=== PATIENT | male | born 1955 | race Caucasian/White ===

== ENCOUNTER 2023-12-29 14:38 | Emergency (ER) | payer MEDICARE, OTHER ==
[2023-12-29 15:30] VITALS: TEMP 97.8
[2023-12-29] MEDS ORDERED: Sodium Chloride 0.9% 1000 ML 1,000 ML ONE (15:40)
[2023-12-29] MEDS: Sodium Chloride 0.9% 1000 ML 1,000 ML IV SCH (15:41)
[2023-12-29 16:03] LABS: Absolute Neutrophil Ct (ANC) 8.33 x10^3/uL (1.4-6.9); BASOPHIL % 0.4 % (0.0-0.4); Basophil (Absolute #) 0.05 x10^3/uL (0-0.4); Eosinophil % 1.4 % (0.00-5.0); Eosinophil (Absolute #) 0.16 x10^3/uL (0-0.5); Hemoglobin 13.2 g/dL (12.5-18.0); IMMATURE GRAN # 0.15 x10^3u/L (0.00-0.03); IMMATURE GRAN % 1.3 % (0.00-0.4); Lymphocyte (Absolute #) 1.77 x10^3/uL (1.0-4.6); Lymphocytes % 15.6 % (24.0-44.0); Mean Cell Volume 85.3 fL (78-100); Mean Corpuscular Hemoglobin 28.1 pg (26-32); Mean Platelet Volume 9.5 fL (7.5-11.0); Monocyte (Absolute #) 0.92 x10^3/uL (0.0-1.3); Monocytes % 8.1 % (0.0-12.0); Neutrophil % 73.2 % (36.0-66.0); Platelet Count 396 x10^3/uL (150-450); Red Blood Count 4.69 x10^6/uL (4.1-5.6); Red Cell Distribution Width 14.6 % (11.5-14.0); White Blood Count 11.4 x10^3/uL (4.0-10.5)
[2023-12-29 16:43] LABS: ANION GAP 14.3 MEQ/L (5-15); BILIRUBIN,TOTAL 0.7 mg/dL (0.2-1.3); Calcium 9.5 mg/dL (8.4-10.2); Creatinine 1 1.04 mg/dL (0.66-1.25); EST GLOMERULAR FILTRATION RATE 79.2 ML/MIN; Potassium 4.4 mmol/L (3.5-5.1); TSH, 3RD Generation 2.429 mIU/L (0.470-4.680); Total Protein 7.1 g/dL (6.3-8.2)
[2023-12-29 16:45] LABS: INR 0.99 (0.8-3.0); PROTIME 10.8 SECONDS (9.4-12.5)
--- NOTE | 2023-12-29 17:01 | XRAY ---
Indication: Weight loss. Comparison: None Portable chest hyperinflated and clear. Mild focal eventration right hemidiaphragm. Heart not enlarged. Bony thorax intact with osteopenia and mild degenerative changes. Impression: Nonacute hyperinflated chest with chronic features.
--- NOTE | 2023-12-29 17:07 | ERPHSYRPT ---
- History of Present Illness Time Seen by Provider: 12/29/23 15:25 Source: patient Exam Limitations: no limitations Patient Subjective Stated Complaint: C/O fatigue, yellow diarrhea, joint pain, weight loss Triage Nursing Assessment: Patient ambulated back to ER. He is alert and oriented. Labored breathing noted at this time. No cough. Edema to BLE. Patient is pale. Physician History: Patient is a 68-year-old male who presents with a complaint of not feeling well. He has been swelling he also has had yellow diarrhea he has been profoundly fatigued he has had a 70 pound weight loss over the last few weeks and his right leg is swollen.He says that his health deteriorated after his Ozempic was doubled from 2.5-5.He Timing/Duration: week(s) (8) Severity: moderate Modifying Factors: Improves With: eating Associated Symptoms: malaise, weakness Allergies/Adverse Reactions: No Known Drug Allergies Allergy (Verified 12/29/23 15:17) Home Medications: Metformin HCl 500 mg [Glucophage 500 MG] 1,000 mg PO BID 01/15/14 [History] Atorvastatin Calcium [Lipitor] 40 mg PO HS 12/29/23 [History] Empagliflozin [Jardiance] 10 mg PO DAILY 12/29/23 [History] Fluticasone/Umeclidin/Vilanter [Trelegy Ellipta 100-62.5-25] 1 puff PO DAILY 12/29/23 [History] Magnesium Oxide 400 mg [Mag-Ox 400] 400 mg PO TID 12/29/23 [History] Bovina-3 Fatty Acids/Fish Oil [Fish Oil 1,000 mg Capsule] 1,000 mg PO BID 12/29/23 [History] Potassium Chloride 10 meq PO BID 12/29/23 [History] Semaglutide [Ozempic] 2 mg SQ WEEKLY 12/29/23 [History] Tamsulosin HCl 0.4 mg [Flomax 0.4 MG] 0.4 mg PO DAILY 12/29/23 [History] Torsemide 20 mg [Demadex 20 mg] 40 mg PO DAILY 12/29/23 [History] Hx Tetanus, Diphtheria Vaccination/Date Given: Yes Hx Influenza Vaccination/Date Given: No Hx Pneumococcal Vaccination/Date Given: No Immunizations Up to Date: Yes Travel Risk - International Travel Have you traveled outside of the country in past 3 weeks: No - Emerging Infectious Disease Are you exhibiting symptoms associated with any current EIDs: Yes Symptoms: Diarrhea, Headaches/Body Aches/, Joint Pain - Review of Systems Constitutional: Weakness, Weight Loss, No Fever, No Chills Eyes: No Symptoms Ears, Nose, & Throat: No Symptoms Respiratory: No Cough, No Dyspnea Cardiac: No Chest Pain, No Edema, No Syncope Abdominal/Gastrointestinal: Diarrhea (Yellow diarrhea), Other, No Abdominal Pain, No Nausea, No Vomiting Genitourinary Symptoms: No Dysuria Musculoskeletal: Joint Pain, Other (Edema of lower extremities), No Back Pain, No Neck Pain Skin: No Rash Neurological: No Dizziness, No Focal Weakness, No Sensory Changes Psychological: No Symptoms Endocrine: No Symptoms All Other Systems: Reviewed and Negative - Past Medical History Pertinent Past Medical History: Yes Neurological History: No Pertinent History ENT History: No Pertinent History Cardiac History: High Cholesterol Respiratory History: COPD Endocrine Medical History: Diabetes Type II GI Medical History: Hernia Psycho-Social History: Depression Male Reproductive Disorders: Prostate Problems - Past Surgical History Past Surgical History: Yes Gastrointestinal: Cholecystectomy Other Surgical History: LEFT SHOULDER - Social History Smoking Status: Current every day smoker How long have you smoked: 50 years Exposure to second hand smoke: Yes Drug Use: none Patient Lives Alone: No - Nursing Vital Signs Nursing Vital Signs: Initial Vital Signs Pulse Rate 94 H 12/29/23 15:13 Respiratory Rate 12/29/23 15:13 Blood Pressure 101/69 12/29/23 15:13 O2 Sat by Pulse Oximetry 93 L 12/29/23 15:13 Pain Scale Pain Intensity 10 - Physical Exam General Appearance: mild distress, alert Eye Exam: PERRL/EOMI, eyes nml inspection Ears, Nose, Throat Exam: normal ENT inspection, TMs normal, pharynx normal, moist mucous membranes Neck Exam: normal inspection, non-tender, supple, full range of motion Respiratory Exam: normal breath sounds, lungs clear, No respiratory distress Cardiovascular Exam: regular rate/rhythm, normal heart sounds, normal peripheral pulses Gastrointestinal/Abdomen Exam: soft, normal bowel sounds, No tenderness, No mass Back Exam: normal inspection, normal range of motion, No CVA tenderness, No v ertebral tenderness Extremity Exam: normal inspection, normal range of motion, pelvis stable Neurologic Exam: alert, oriented x 3, cooperative, normal mood/affect, nml cerebellar function, nml station & gait, sensation nml, No motor deficits Skin Exam: normal color, warm, dry, No rash Lymphatic Exam: No adenopathy SpO2: 94 - Course Nursing assessment & vital signs reviewed: Yes EKG Interpreted by Me: RATE (93), Sinus Rhythm, NORMAL AXIS, NORMAL INTERVALS, Non-specific ST Changes - Radiology Exams Chest X-ray Interpretation: Reviewed by me - CT Exams Abdomen/Pelvis CT Interpretation: Other (Reviewed by ED physician) Ordered Tests: Active Orders 24 hr Category Date Time Status EKG-ER Only STAT Care 12/29/23 15:19 Active IV Insertion STAT Care 12/29/23 15:19 Active ABDOMEN AND PELVIS W CONTRAST [CT] Stat Exams 12/29/23 15:23 Taken CHEST 1 VIEW (PORTABLE) Stat Exams 12/29/23 15:23 Completed AMYLASE Stat Lab 12/29/23 15:30 Completed BLOOD CULTURE Stat Lab 12/29/23 16:12 Received CBC W DIFF Stat Lab 12/29/23 15:30 Completed CMP Stat Lab 12/29/23 15:30 Completed LIPASE Stat Lab 12/29/23 15:30 Completed Lactic Acid Stat Lab 12/29/23 15:19 Completed Lactic Acid Stat Lab 12/29/23 18:39 Completed OB-FECAL SCREEN Stat Lab 12/29/23 Ordered PROTIME WITH INR Stat Lab 12/29/23 15:30 Completed TROPONIN Q4H Lab 12/29/23 15:30 Completed TROPONIN Q4H Lab 12/29/23 18:40 Completed TROPONIN Q4H Lab 12/29/23 23:30 Ordered TSH, 3RD Generation Stat Lab 12/29/23 15:30 Completed UA W/RFX UR CULTURE Stat Lab 12/29/23 17:53 Completed Urine Triage Profile Stat Lab 12/29/23 17:53 Completed Medication Summary Generic Name Dose Route Start Last Admin Trade Name Freq PRN Reason Stop Dose Admin Sodium Chloride 1,000 mls @ 100 mls/hr 12/29/23 15:30 12/29/23 15:41 Sodium Chloride 0.9% 1000 Ml IV 01/28/24 15:29 100 mls/hr .Q10H JORGE LUIS Administration Lab/Rad Data: Laboratory Result Diagrams 12/29/23 15:30 12/29/23 15:30 Laboratory Results 12/29/23 12/29/23 12/29/23 Range/Units 18:40 18:39 17:53 WBC (4.0-10.5) x10^3/uL RBC (4.1-5.6) x10^6/uL Hgb (12.5-18.0) g/dL Hct (42-50) % MCV (78-100) fL MCH (26-32) pg MCHC (32-36) g/dL RDW (11.5-14.0) % Plt Count (150-450) x10^3/uL MPV (7.5-11.0) fL Gran % (36.0-66.0) % Immature Gran % (Auto) (0.00-0.4) % Nucleat RBC Rel Count (0.00-0.1) % Eos # (Auto) (0-0.5) x10^3/uL Immature Gran # (Auto) (0.00-0.03) x10^3u/L Absolute Lymphs (auto) (1.0-4.6) x10^3/uL Absolute Monos (auto) (0.0-1.3) x10^3/uL Absolute Nucleated RBC (0.00-0.01) x10^3u/L Lymphocytes % (24.0-44.0) % Monocytes % (0.0-12.0) % Eosinophils % (0.00-5.0) % Basophils % (0.0-0.4) % Absolute Granulocytes (1.4-6.9) x10^3/uL Basophils # (0-0.4) x10^3/uL PT (9.4-12.5) SECONDS INR (0.8-3.0) Sodium (135-145) mmol/L Potassium (3.5-5.1) mmol/L Chloride (98-107) mmol/L Carbon Dioxide (22-30) mmol/L Anion Gap (5-15) MEQ/L BUN (9-20) mg/dL Creatinine (0.66-1.25) mg/dL Estimated GFR ML/MIN Glucose (74-106) mg/dL Lactic Acid 2.0 (0.4-2.0) Calcium (8.4-10.2) mg/dL Total Bilirubin (0.2-1.3) mg/dL AST (17-59) U/L ALT (0-50) U/L Alkaline Phosphatase (38-126) U/L Troponin I 0.043 H* (0.000-0.033) ng/mL Serum Total Protein (6.3-8.2) g/dL Albumin (3.5-5.0) g/dL Amylase (30-110) U/L Lipase (23-300) U/L TSH 3rd Generation (0.470-4.680) mIU/L Urine Color (Yellow) Urine Appearance (Clear) Urine pH (4.6-8.0) Ur Specific Warren (1.005-1.030) Urine Protein (Negative) Urine Glucose (UA) (Negative) mg/dL Urine Ketones (Negative) Urine Blood (Negative) Urine Nitrite (Negative) Urine Bilirubin (Negative) Urine Urobilinogen (0.2) mg/dL Ur Leukocyte Esterase (Negative) U Hyaline Cast (Auto) (0-2) /LPF Urine Microscopic RBC (0-5) /HPF Urine Microscopic WBC (0-5) /HPF Ur Epithelial Cells (None Seen) /HPF Urine Bacteria (None Seen) /HPF Urine Culture Reflexed (NO) Urine Opiates Level NEGATIVE (NEGATIVE) Ur Methadone NEGATIVE (NEGATIVE) Urine Barbiturates NEGATIVE (NEGATIVE) Ur Phencyclidine (PCP) NEGATIVE (NEGATIVE) Urine Amphetamine NEGATIVE (NEGATIVE) U Benzodiazepine Level NEGATIVE (NEGATIVE) Urine Cocaine NEGATIVE (NEGATIVE) Urine Marijuana (THC) NEGATIVE (NEGATIVE) 12/29/23 12/29/23 12/29/23 Range/Units 17:53 15:30 15:30 WBC (4.0-10.5) x10^3/uL RBC (4.1-5.6) x10^6/uL Hgb (12.5-18.0) g/dL Hct (42-50) % MCV (78-100) fL MCH (26-32) pg MCHC (32-36) g/dL RDW (11.5-14.0) % Plt Count (150-450) x10^3/uL MPV (7.5-11.0) fL Gran % (36.0-66.0) % Immature Gran % (Auto) (0.00-0.4) % Nucleat RBC Rel Count (0.00-0.1) % Eos # (Auto) (0-0.5) x10^3/uL Immature Gran # (Auto) (0.00-0.03) x10^3u/L Absolute Lymphs (auto) (1.0-4.6) x10^3/uL Absolute Monos (auto) (0.0-1.3) x10^3/uL Absolute Nucleated RBC (0.00-0.01) x10^3u/L Lymphocytes % (24.0-44.0) % Monocytes % (0.0-12.0) % Eosinophils % (0.00-5.0) % Basophils % (0.0-0.4) % Absolute Granulocytes (1.4-6.9) x10^3/uL Basophils # (0-0.4) x10^3/uL PT 10.8 (9.4-12.5) SECONDS INR 0.99 (0.8-3.0) Sodium (135-145) mmol/L Potassium (3.5-5.1) mmol/L Chloride (98-107) mmol/L Carbon Dioxide (22-30) mmol/L Anion Gap (5-15) MEQ/L BUN (9-20) mg/dL Creatinine (0.66-1.25) mg/dL Estimated GFR ML/MIN Glucose (74-106) mg/dL Lactic Acid (0.4-2.0) Calcium (8.4-10.2) mg/dL Total Bilirubin (0.2-1.3) mg/dL AST (17-59) U/L ALT (0-50) U/L Alkaline Phosphatase (38-126) U/L Troponin I 0.051 H* (0.000-0.033) ng/mL Serum Total Protein (6.3-8.2) g/dL Albumin (3.5-5.0) g/dL Amylase (30-110) U/L Lipase (23-300) U/L TSH 3rd Generation (0.470-4.680) mIU/L Urine Color Yellow (Yellow) Urine Appearance Clear (Clear) Urine pH 6.0 (4.6-8.0) Ur Specific Warren >=1.030 A (1.005-1.030) Urine Protein Negative (Negative) Urine Glucose (UA) >=1000 A (Negative) mg/dL Urine Ketones Negative (Negative) Urine Blood Negative (Negative) Urine Nitrite Negative (Negative) Urine Bilirubin Negative (Negative) Urine Urobilinogen 0.2 (0.2) mg/dL Ur Leukocyte Esterase Negative (Negative) U Hyaline Cast (Auto) NONE SEEN (0-2) /LPF Urine Microscopic RBC 0-2 (0-5) /HPF Urine Microscopic WBC 0-2 (0-5) /HPF Ur Epithelial Cells None Seen (None Seen) /HPF Urine Bacteria None Seen (None Seen) /HPF Urine Culture Reflexed NO (NO) Urine Opiates Level (NEGATIVE) Ur Methadone (NEGATIVE) Urine Barbiturates (NEGATIVE) Ur Phencyclidine (PCP) (NEGATIVE) Urine Amphetamine (NEGATIVE) U Benzodiazepine Level (NEGATIVE) Urine Cocaine (NEGATIVE) Urine Marijuana (THC) (NEGATIVE) 12/29/23 12/29/23 12/29/23 Range/Units 15:30 15:30 15:19 WBC 11.4 H (4.0-10.5) x10^3/uL RBC 4.69 (4.1-5.6) x10^6/uL Hgb 13.2 (12.5-18.0) g/dL Hct 40.0 L (42-50) % MCV 85.3 (78-100) fL MCH 28.1 (26-32) pg MCHC 33.0 (32-36) g/dL RDW 14.6 H (11.5-14.0) % Plt Count 396 (150-450) x10^3/uL MPV 9.5 (7.5-11.0) fL Gran % 73.2 H (36.0-66.0) % Immature Gran % (Auto) 1.3 H (0.00-0.4) % Nucleat RBC Rel Count 0.0 (0.00-0.1) % Eos # (Auto) 0.16 (0-0.5) x10^3/uL Immature Gran # (Auto) 0.15 H (0.00-0.03) x10^3u/L Absolute Lymphs (auto) 1.77 (1.0-4.6) x10^3/uL Absolute Monos (auto) 0.92 (0.0-1.3) x10^3/uL Absolute Nucleated RBC 0.00 (0.00-0.01) x10^3u/L Lymphocytes % 15.6 L (24.0-44.0) % Monocytes % 8.1 (0.0-12.0) % Eosinophils % 1.4 (0.00-5.0) % Basophils % 0.4 (0.0-0.4) % Absolute Granulocytes 8.33 H (1.4-6.9) x10^3/uL Basophils # 0.05 (0-0.4) x10^3/uL PT (9.4-12.5) SECONDS INR (0.8-3.0) Sodium 136 (135-145) mmol/L Potassium 4.4 (3.5-5.1) mmol/L Chloride 101 (98-107) mmol/L Carbon Dioxide 25 (22-30) mmol/L Anion Gap 14.3 (5-15) MEQ/L BUN 23 H (9-20) mg/dL Creatinine 1.04 (0.66-1.25) mg/dL Estimated GFR 79.2 ML/MIN Glucose 234 H (74-106) mg/dL Lactic Acid 3.4 H (0.4-2.0) Calcium 9.5 (8.4-10.2) mg/dL Total Bilirubin 0.70 (0.2-1.3) mg/dL AST 19 (17-59) U/L ALT 18 (0-50) U/L Alkaline Phosphatase 89 (38-126) U/L Troponin I (0.000-0.033) ng/mL Serum Total Protein 7.1 (6.3-8.2) g/dL Albumin 4.0 (3.5-5.0) g/dL Amylase 73 (30-110) U/L Lipase 147 (23-300) U/L TSH 3rd Generation 2.429 (0.470-4.680) mIU/L Urine Color (Yellow) Urine Appearance (Clear) Urine pH (4.6-8.0) Ur Specific Warren (1.005-1.030) Urine Protein (Negative) Urine Glucose (UA) (Negative) mg/dL Urine Ketones (Negative) Urine Blood (Negative) Urine Nitrite (Negative) Urine Bilirubin (Negative) Urine Urobilinogen (0.2) mg/dL Ur Leukocyte Esterase (Negative) U Hyaline Cast (Auto) (0-2) /LPF Urine Microscopic RBC (0-5) /HPF Urine Microscopic WBC (0-5) /HPF Ur Epithelial Cells (None Seen) /HPF Urine Bacteria (None Seen) /HPF Urine Culture Reflexed (NO) Urine Opiates Level (NEGATIVE) Ur Methadone (NEGATIVE) Urine Barbiturates (NEGATIVE) Ur Phencyclidine (PCP) (NEGATIVE) Urine Amphetamine (NEGATIVE) U Benzodiazepine Level (NEGATIVE) Urine Cocaine (NEGATIVE) Urine Marijuana (THC) (NEGATIVE) - Progress Progress: improved Medical Desision Making - Diagnostic Testing Diagnostic test were ordered, analyzed, and reviewed by me: Yes Radiological Interpretation: Reviewed by me - Risk of complications Low Risk: Low risk of morbidity from additional dx testing or treatment - Departure Departure Disposition: Home Clinical Impression: Medication reaction Condition: Stable Critical Care Time: No Referrals: KAYLA ROBERTSON [Primary Care Provider] - Follow up/PCP as directed Additional Instructions: Hold your Ozempic until you see your family physician.
[2023-12-29 18:34] LABS: Appearance Clear (Clear); Bacteria None Seen /HPF (None Seen); Bilirubin Negative (Negative); Blood Negative (Negative); Epithelial Cells None Seen /HPF (None Seen); Glucose, Urine >=1000 mg/dL (Negative); Hyaline Casts NONE SEEN /LPF (0-2); Ketones Negative (Negative); Leukocyte Esterase Negative (Negative); Nitrite Negative (Negative); Protein,Urine Dip Negative (Negative); RBC 0-2 /HPF (0-5); Specific Gravity >=1.030 (1.005-1.030); Urobilinogen 0.2 mg/dL (0.2); WBC 0-2 /HPF (0-5)
[2023-12-29 18:35] LABS: ADD URINE CULTURE? NO (NO)
[2023-12-29 18:41] LABS: Amphetamine,Urine NEGATIVE (NEGATIVE); Barbiturate,Urine NEGATIVE (NEGATIVE); Benzodiazepine,Urine NEGATIVE (NEGATIVE); Cocaine,Urine NEGATIVE (NEGATIVE); Methadone,Urine NEGATIVE (NEGATIVE); Opiate,Urine NEGATIVE (NEGATIVE); PCP,Urine NEGATIVE (NEGATIVE); THC,Urine NEGATIVE (NEGATIVE)
[2023-12-29 19:22] VITALS: BP 104/67; PULSE 83; RESP 18
[2023-12-29 19:42] VITALS: O2SAT 94
--- NOTE | 2023-12-30 08:38 | XRAY ---
Indication: Weight loss. Multiple contiguous axial images obtained through the abdomen and pelvis using 80 cc Isovue 370 contrast. Comparison: None Lung bases demonstrates 1.3 cm indeterminate right lower lobe subpleural noncalcified nodule. No infiltrate or effusion. Heart not enlarged with scattered coronary calcifications. Stomach mildly fluid distended. Noncontrasted stomach and bowel loops appear nonobstructed with normal appendix. Mild diffuse fatty liver, 3.8 cm right renal cyst, and previous cholecystectomy. No free fluid/air. Remaining liver, pancreas, spleen, adrenal glands, kidneys, ureters, and bladder are unremarkable. Moderate scattered aortoiliac calcifications. No AAA or pathologic retroperitoneal lymphadenopathy. Osseous structures intact with osteopenia, mild/moderate multilevel thoracolumbar degenerative spondylosis, mild dextroscoliosis centered at L2, and mild degenerative changes both hips. Large fatty umbilical hernia. Impression: 1. 1.3 cm indeterminate right lower lobe noncalcified nodule. Outside comparison studies recommended if available. If not PET/CT may yield further information. 2. Chronic findings including fatty liver, right renal cyst, arteriosclerotic disease, chronic bony findings, and large fatty umbilical hernia. 3. Remaining CT abdomen/pelvis without contrast exam is negative.
== END 2023-12-29 19:53 | disposition home or self-care (01) ==
LOC: ED 14:38
DX: R53.83 Other fatigue (principal); T50.995A Adverse effect of other drugs, medicaments and biological substances, initial encounter; R19.7 Diarrhea, unspecified; R63.4 Abnormal weight loss; E78.5 Hyperlipidemia, unspecified; E11.9 Type 2 diabetes mellitus without complications; Z79.84 Long term (current) use of oral hypoglycemic drugs; Z79.85 Long-term (current) use of injectable non-insulin antidiabetic drugs; Z79.899 Other long term (current) drug therapy; Z72.0 Tobacco use
CPT/HCPCS: 36000; 36415; 71045; 74177; 80053; 80307; 81001; 82150; 83605; 83690; 84443; 84484; 85025; 85610; 87040; 93005; 99284

== ENCOUNTER 2024-01-13 06:12 | Day surgery (SDC) | payer OTHER, MEDICARE ==
--- NOTE | 2024-01-12 11:54 | HP ---
DATE OF SURGERY: 01/13/2024 HISTORY OF PRESENT ILLNESS: The patient is a 68-year-old male with complaints of hernia at the umbilicus. He has had this for a while. He had been set up originally but canceled for lymph node biopsy that was benign. The hernia has some ulcerated skin on it and will not reduce. PAST MEDICAL HISTORY: Hypertension, hyperlipidemia, diabetes. PAST SURGICAL HISTORY: Cholecystectomy. Shoulder surgery. ALLERGIES: NKDA. MEDICATIONS: Atorvastatin, Farxiga, fish oil, glipizide, Lisinopril, metformin, Ozempic, Tamsulosin, budesonide, Trelegy. FAMILY HISTORY: Diabetes. Cancer unspecified. SOCIAL HISTORY: Nonsmoker. REVIEW OF SYSTEMS: CONSTITUTIONAL: Denies fever or chills. CHEST: Denies shortness of breath. CVS: Denies chest pain. ABDOMEN: Reports umbilical hernia pain. PHYSICAL EXAMINATION: GENERAL: No acute distress. CHEST: Nonlabored. No shortness of breath. CVS: Regular rate and rhythm. ABDOMEN: Soft with a moderate incarcerated umbilical hernia. IMPRESSION: Moderately incarcerated umbilical hernia with skin ulceration. PLAN: Open umbilical hernia repair with mesh with Dr. Frandy Colbert. As dictated by Amee Conn NP.
[2024-01-13] MEDS ORDERED: TYLENOL EXTRA STRENGTH 500 MG ONE (06:47)
[2024-01-13] MEDS ORDERED: Decadron 4 MG ONE (06:47)
[2024-01-13] MEDS ORDERED: CEFAZOLIN 2 GM-D5W BAG** 2 GM/50 ML ML IV ONE (06:47)
[2024-01-13] MEDS ORDERED: celeBREX 100 MG ONE (06:48)
[2024-01-13] MEDS ORDERED: Lactated Ringers 1,000 ML IV ONE (06:48)
[2024-01-13] MEDS ORDERED: NEURONTIN ONE (06:48)
[2024-01-13] MEDS: celeBREX 100 MG PO ONE (07:01)
[2024-01-13] MEDS: Lactated Ringers 1,000 ML IV SCH (07:01)
[2024-01-13] MEDS: NEURONTIN PO ONE (07:01)
[2024-01-13] MEDS: Decadron 4 MG PO ONE (07:01)
[2024-01-13] MEDS: CEFAZOLIN 2 GM-D5W BAG** 2 GM/50 ML ML IV SCH (07:01)
[2024-01-13] MEDS: TYLENOL EXTRA STRENGTH 500 MG PO ONE (07:02)
[2024-01-13] MEDS ORDERED: Sensorcaine 0.25% 10 ML ONE (07:29)
[2024-01-13 07:31] LABS: Calcium 9.2 mg/dL (8.4-10.2); Creatinine 1 0.56 mg/dL (0.66-1.25); EST GLOMERULAR FILTRATION RATE 108.7 ML/MIN; Potassium 4.5 mmol/L (3.5-5.1)
[2024-01-13] MEDS ORDERED: BRIDION 200MG/2ML IV ONE ×3 (10:46→11:32)
[2024-01-13] MEDS ORDERED: ROCURONIUM BROMIDE IV ONE (10:46)
[2024-01-13] MEDS ORDERED: Xylocaine-Mpf 2% 5 Ml Vial ONE (10:46)
[2024-01-13] MEDS ORDERED: DIPRIVAN 200 MG/20 ML IV ONE (10:46)
[2024-01-13] MEDS ORDERED: Quelicin Fliptop 200 MG/10 ML ONE (10:46)
[2024-01-13] MEDS ORDERED: SUBLIMAZE 100 MCG/2 ML ONE (10:47)
[2024-01-13] MEDS ORDERED: DEXMEDETOMIDINE 80 MCG/20ML-NS IV ONE (10:49)
[2024-01-13] MEDS ORDERED: Pre-Attached Lta Kit TP ONE (10:52)
[2024-01-13] MEDS ORDERED: Marcaine Mpf 0.5% Vial 30 Ml ONE (10:52)
[2024-01-13] MEDS ORDERED: EXPAREL 133 MG/10 ML VIAL IJ ONE (10:52)
[2024-01-13] MEDS ORDERED: Ephedrine Sulfate 50 MG/ML ONE (11:20)
[2024-01-13] MEDS ORDERED: Hydromorphone 1 mg/ml Injection ONE (12:46)
[2024-01-13 13:21] VITALS: RESP 16
--- NOTE | 2024-01-13 13:52 | OP ---
SURGERY DATE/TIME: 01/13/2024 1056 PREOPERATIVE DIAGNOSIS: Incarcerated umbilical hernia symptomatic. POSTOPERATIVE DIAGNOSIS: Incarcerated umbilical hernia symptomatic. PROCEDURES: 1) Open umbilical hernia repair primarily with no mesh. 2) Resection of a portion of omentum measuring 8 x 4 inches that was incarcerated in the defect. SURGEON: Frandy Colbert M.D. ANESTHESIA: General. COMPLICATIONS: None. CONDITION: Stable. DESCRIPTION OF PROCEDURE: Patient taken to surgery. The umbilical area was scored. There was incarcerated omentum, which was resected between five clamps about 8 x 4 inches long, partial omentectomy. The edges were dry and were able to drop in. The fascial ring was able to be picked up and was dry. It was then closed with a 1 inch suture of #0 Prolene. The defect was only 2 cm long and about 1 cm vertically and it was closed in surgically. Good approximation and hemostasis on closure. Subcutaneous tissue irrigated. Skin closed with ilan. Sterile dressing applied. The patient tolerated the procedure satisfactorily.
[2024-01-13 14:01] VITALS: BP 153/86; PULSE 76; TEMP 96.5; O2SAT 95
== END 2024-01-13 14:13 | disposition home or self-care (01) ==
LOC: SDC 06:12
PROVIDERS: ATTEND Surgery
DX: K42.0 Umbilical hernia with obstruction, without gangrene (principal); Z83.3 Family history of diabetes mellitus; Z80.9 Family history of malignant neoplasm, unspecified
CPT/HCPCS: 36415; 64488; 76937; 80048; 82947; 83036; J0330; J0690; J1170; J2704; J3010; L0625; A9270-GY

== ENCOUNTER 2024-03-16 09:19 | Day surgery (SDC) | payer OTHER, MEDICARE ==
[2024-03-16] MEDS: Lactated Ringers 1,000 ML IV SCH (09:34)
[2024-03-16] MEDS ORDERED: Xylocaine-Mpf 2% 5 Ml Vial ONE (11:50)
[2024-03-16] MEDS ORDERED: DIPRIVAN 200 MG/20 ML IV ONE (11:50)
[2024-03-16 12:40] VITALS: O2SAT 99
[2024-03-16 12:53] VITALS: BP 180/82; PULSE 68; RESP 18; TEMP 97.8
== END 2024-03-16 13:03 | disposition home or self-care (01) ==
LOC: SDC 09:19
PROVIDERS: ATTEND Surgery
DX: Z12.11 Encounter for screening for malignant neoplasm of colon (principal); E11.9 Type 2 diabetes mellitus without complications; K64.8 Other hemorrhoids
CPT/HCPCS: 82947; G0121; J2704